=== PATIENT | female | born 1965 | race Caucasian/White ===

== ENCOUNTER 2016-09-13 13:09 | Emergency (ER) | payer OTHER ==
[2016-09-13 14:49] VITALS: BP 132/77
--- NOTE | 2016-09-13 15:40 | UC ---
Amira Bryan Alok, scribed for Cliff Cruz MD on 09/13/16 at 1515 . Skin Complaint HPI - HPI Summary HPI Summary: 50F presents to [facility] with "bumps" on her left side forehead first noticed 1 week ago. Pt states that these bumps were initially non-erythematous and has now progressed to erythematous. Pt also notes pruritus though not as severe as before. Pt also notes forehead soreness but also not as severe as before. Pt adds a dull, left-sided occipital DALAL which comes and goes for the past week. Pt also notes neck pain as of today. Pt denies eye pain. Pt denies fever, chills, N /V. Pt denies photophobia greater than baseline. Pt denies one-sided weakness or changes in vision/speech. Pt denies dysphagia. Pt notes environmental allergies and states her skin condition could be a possible reaction to poison sumac while in her garden. PSHx includes gallbladder surgery and ectopic pregancy. PMHx includes DM, depression, and anxiety. Pt smokes tobacco. - History of Current Complaint Chief Complaint: UCSkin Time Seen by Provider: 09/13/16 15:05 Stated Complaint: SKIN COMPLAINT Hx Obtained From: Patient ?: No Onset/Duration: Lasting Days, Still Present Timing: Constant Onset Severity: Moderate Current Severity: Moderate Location: Face - left forehead Character: Pruritus, Pain, Redness, Raised Associated Signs & Symptoms: Negative: Nausea, Vomiting, Weakness - Positive: DALAL , neck pain, Fever, Chills, Throat Tightening - Allergy/Home Medications Allergies/Adverse Reactions: Allergies Allergy/AdvReac Type Severity Reaction Status Date / Time No Known Allergies Allergy Verified 09/13/16 14:49 Home Medications: Home Medications ARIPiprazole TAB* [Abilify 2 MG TAB*] 2 mg PO DAILY 09/13/16 [History Confirmed 09/13/16] Insulin GLARGINE(*) [Lantus(*)] 45 units SUBCUT DAILY 09/13/16 [History Confirmed 09/13/16] Liraglutide [Victoza] 1.8 mg SUBCUT DAILY 09/13/16 [History Confirmed 09/13/16] Lisinopril TAB* [Prinivil TAB 5 MG*] 5 mg PO DAILY 09/13/16 [History Confirmed 09/13/16] Meloxicam 7.5 mg PO DAILY 09/13/16 [History Confirmed 09/13/16] Venlafaxine EXT RELEASE CAP* [Effexor Xr CAP*] 75 mg PO DAILY 09/13/16 [History Confirmed 09/13/16] Review of Systems Constitutional: Negative Skin: Other - raised, erythamatous, pruritus, painful, bumps left side forehead Gastrointestinal: Negative Motor: Negative Musculoskeletal: Other: - neck pain Neurological: Headache All Other Systems Reviewed And Are Negative: Yes PMH/Surg Hx/FS Hx/Imm Hx Endocrine History Of: Reports: Diabetes Denies: Thyroid Disease Cardiovascular History Of: Denies: Cardiac Disorders, Hypertension Respiratory History Of: Denies: COPD, Asthma GI/ History Of: Denies: Ulcer - Surgical History Surgical History: Yes Surgery Procedure, Year, and Place: gall bladder, ruptured ectopic - Family History Known Family History: Negative: Cardiac Disease, Hypertension - Social History Occupation: Employed Full-time Lives: Alone Alcohol Use: Rare Substance Use Type: Marijuana Smoking Status (MU): Current Every Day Smoker Type: Cigarettes Physical Exam Triage Information Reviewed: Yes Appearance: Well-Appearing, No Pain Distress Vital Signs: Initial Vital Signs Temp 98.7 F 09/13/16 14:40 Pulse 62 09/13/16 14:40 Resp 18 09/13/16 14:40 BP 132/77 09/13/16 14:40 Pulse Ox 99 09/13/16 14:40 Vital Signs Reviewed: Yes Eyes: Positive: Conjunctiva Clear, Other: - No slitlamp available her at urgent care ENT: Positive: Normal ENT inspection Respiratory: Positive: Chest non-tender, Lungs clear Cardiovascular: Positive: RRR, No Murmur Abdomen Description: Negative: Distended Musculoskeletal: Positive: Strength Intact, ROM Intact, No Edema Neurological: Positive: Alert, Muscle Tone Normal, Other: - cn 2-1 2 grossly intact, gait normal, strength 5/5 throughout, sensory grossly intact. Psychological: Positive: Age Appropriate Behavior Skin: Positive: Other - There are scabs on the left frontal forehead about 1.5 inches above the left eyebrow. On an erythematous base. Course/Dx - Course Course Of Treatment: 50 yr old female who sound like she started with vesicles on left forehead a week ago, and now has headache, neck stiff and achey, and rash is unilateral. I have advised her to go to the ER by ambulance, and she states she is not going to the hospital today, she was informed of risk of infection in the brain, cornea, and complications. She signed out AMA. - Diagnoses Provider Diagnoses: rash to the forehead. headache. neck pain,stiffness Discharge - Discharge Plan Condition: Good Disposition: AGAINST MEDICAL ADVICE The documentation as recorded by the Amira chiang Alok accurately reflects the service I personally performed and the decisions made by me, Cliff Cruz MD.
== END 2016-09-13 15:41 | disposition left against medical advice (07) ==
LOC: UCEAST 13:09
DX: R21 Rash and other nonspecific skin eruption (principal); R51 Headache; M54.2 Cervicalgia; M43.6 Torticollis; E11.9 Type 2 diabetes mellitus without complications; Z79.4 Long term (current) use of insulin; Z90.49 Acquired absence of other specified parts of digestive tract; F17.210 Nicotine dependence, cigarettes, uncomplicated
CPT/HCPCS: 99202; G0463